=== PATIENT | female | born 2000 | race Two or more races ===

== ENCOUNTER 2025-09-18 15:24 | Emergency (ER) | payer MEDICAID, SELFPAY ==
--- NOTE | 2025-09-18 15:29 | EKG_ITS ---
[facility] Test Date: 2025-09-18 Pat Name: DOMINIQUE WOODS Department: Room: - Gender: Female Human Service Specialist: : 2000 Requested By: Faisal Vieira Order Number: [id number] Reading MD: Faisal Vieira Measurements Intervals [place] Rate: 75 P: 62 SD: 143 QRS: 55 QRSD: 82 T: 50 QT: 349 QTc: 390 Interpretive Statements SINUS RHYTHM WITH OCCASIONAL SUPRAVENTRICULAR PREMATURE COMPLEXES No previous ECG available for comparison /[id number]
--- NOTE | 2025-09-18 15:29 | XR_ITS ---
EXAMINATION: PA chest single view TECHNIQUE: Upright PA chest single view Date and time: September 18, 2025, 1549 hours INDICATIONS: Chest pain onset today. FINDINGS: Normal heart size Lungs are clear. Intact osseous structures IMPRESSION: No active disease
[2025-09-18 15:30] VITALS: BP 131/85; PULSE 79; RESP 18; TEMP 36.8; O2SAT 98; BMI 29.0
[2025-09-18 15:58] LABS: Basophils # (Auto) 0.0 Thou/mm3 (0.0-0.2); Basophils % (Auto) 1 % (0-2.5); Eosinophils # (Auto) 0.1 Thou/mm3 (0.0-0.5); Eosinophils % (Auto) 1 % (0-10); Hematocrit 38.2 % (36.0-46.0); Hemoglobin 13.2 g/dL (12.0-16.0); Immature Granulocytes Auto 0.03 Thou/mm3 (0.00-0.00); Lymphocytes # (Auto) 1.7 Thou/mm3 (1.0-4.8); Lymphocytes % (Auto) 20 % (10-50); Mean Corpuscular HGB Conc 34.6 g/dl (31.0-37.0); Mean Corpuscular Hemoglobin 30.3 pg (25.0-35.0); Mean Corpuscular Volume 88 fL (80-100); Monocytes # (Auto) 0.8 Thou/mm3 (0.0-0.8); Monocytes % (Auto) 10 % (0-12); Neutrophils # (Auto) 5.7 Thou/mm3 (1.8-7.7); Neutrophils % (Auto) 68 % (37-80); Nucleated Red Blood Cell # 0.00 Thou/mm3 (0.00-0.00); Nucleated Red Blood Cell % 0 /100 WBC (0); Platelet Count 257 Thou/mm3 (140-440); RDW Standard Deviation 40.8 fL (36.4-46.3); Red Blood Count 4.35 Miln/mm3 (4.00-5.20); White Blood Count 8.3 Thou/mm3 (3.6-11.0)
[2025-09-18 16:23] LABS: HCG,Qualitative Serum Negative
--- NOTE | 2025-09-18 16:33 | EDNOTE_ITS ---
<Statement entered by Marilynn Betancourt MD - 09/19/25 17:47> As co-signing physician, I was present and available for consult prn. I concur with the plan and care as documented by the midlevel provider. ED Chest Pain RME/HPI General Chief Complaint: Chest Pain Stated Complaint: CHEST PAIN Time Seen by Provider: 09/18/25 15:28 Source: patient Arrival date/time: 09/18/25 15:24 25-year-old female with no known medical history presents to the emergency room with a chief complaint of 7 out of 10 sternal chest pain x 2 days Mode of arrival: ambulatory Limitations: no limitations Related Data Previous Rx's ?Medication ?Instructions ?Recorded ondansetron 4 mg disintegrating 4 mg PO Q6H PRN nausea and 11/05/19 tablet vomiting #10 tabs promethazine-DM 6.25 mg-15 mg/5 mL 5 ml PO Q6H #120 mL 11/05/19 oral syrup acetaminophen 650 mg 650 mg PO Q8H PRN fever or p ain 11/06/20 tablet,extended release #30 tabs cephalexin 500 mg capsule (Keflex) 500 mg PO Q6HR #40 caps 11/06/20 ibuprofen 600 mg tablet 600 mg PO Q8H PRN fever or p ain 11/06/20 #30 tabs neomycin-bacitracn Zn-polymyx 3.5 1 applicatio topical BID #15 grams 11/06/20 mg-400 unit-5,000 unit/gram top oint (Triple Antibiotic) omeprazole 40 mg capsule,delayed 40 mg PO QDAY #14 cap s 09/18/25 release Allergies Allergy/AdvReac Type Severity Reaction Status Date / Time No Known Allergies Allergy Verified 11/05/19 09:46 Review of Systems Review of Systems Systems Reviewed: All systems reviewed, normal except as documented Constitutional Constitutional: Reports system reviewed and no additional complaints, except as documented, Denies fatigue, Denies fever(s), Denies headache(s) and Denies weakness Eyes Eyes: Reports system reviewed and no additional complaints, except as documented, Denies blurry vision and Denies change in vision ENT Ears, Nose, Mouth, and Throat: Reports system reviewed and no additional complaints, except as documented, Denies otalgia, Denies headache(s), Denies nasal congestion, Denies throat swelling and Denies vertigo Cardiovascular Cardiovascular: Reports system reviewed and no additional complaints, except as documented, Reports chest pain, Reports chest pain with activity, Denies dyspnea and Denies dyspnea on exertion Respiratory Respiratory: Reports system reviewed and no additional complaints, except as documented, Denies chest congestion, Denies cough, Denies dyspnea, Denies dyspnea on exertion and Denies wheezing Gastrointestinal Gastrointestinal: Reports system reviewed and no additional complaints, except as documented, Denies abdominal pain, Denies cramping, Denies nausea and Denies vomiting Genitourinary Genitourinary: Reports system reviewed and no additional complaints, except as documented Musculoskeletal Musculoskeletal: Reports system reviewed and no additional complaints, except as documented and Denies back pain Integumentary/Breasts Skin/Breast: Reports system reviewed and no additional complaints, except as doc umented and Denies wounds Neurologic Neurologic: Reports system reviewed and no additional complaints, except as documented, Denies confusion, Denies headache(s), Denies lack of coordination, Denies vertigo and Denies weakness Psychiatric Psychiatric: Reports system reviewed and no additional complaints, except as documented, Denies anxiety, Denies confusion, Denies depression, Denies paranoia, Denies suicidal ideation and Denies tactile hallucinations Endocrine Endocrine: Reports system reviewed and no additional complaints, except as documented and Denies fatigue Hematologic/Lymphatic Hematologic/Lymphatic: Reports system reviewed and no additional complaints, except as documented and Denies lymphadenopathy Allergic/Immunologic Allergic/Immunologic: Reports system reviewed and no additional complaints, except as documented, Denies throat swelling, Denies urticaria and Denies wheezing ED Exam General Limitations: Present no limitations Course Quality Measures none Orders Category Date Time Status EKG (ED ONLY) *Do not use* NOW Care 09/18/25 15:29 Completed CXR [XR chest 1V] Stat Exams 09/18/25 15:29 Completed EKG (ED Only) Stat Exams 09/18/25 15:29 Draft CBC Stat Lab 09/18/25 15:42 Completed CMP [Comprehensive Metabolic Panel] Stat Lab 09/18/25 15:42 Completed HCG,Qualitative Serum Stat Lab 09/18/25 15:42 Completed Troponin I Stat Lab 09/18/25 15:42 Completed Vital Signs Vital signs: Vital Signs Temperature 98.3 F 09/18/25 15:30 Pulse Rate 79 09/18/25 15:30 Respiratory Rate 18 09/18/25 15:30 Blood Pressure 131/85 H 09/18/25 15:30 Pulse Oximetry (%) 98 09/18/25 15:30 Oxygen Delivery Method Room Air 09/18/25 15:30 PROCEDURES: EKG Interpretation #1: Date of EK09/18/25 Rate: 75 Interpretation: Reviewed by me EKG Impression: Normal sinus rhythm Chest Pain MDM Narrative MDM Narrative:: 25-year-old female with no known medical history presents to the emergency room with a chief complaint of 7 out of 10 sternal chest pain x 2 days Patient is hemodynamically stable and in no apparent distress. Physical examination shows 7 out of 10 sternal chest pain but the patient also has tenderness to the epigastric area of the patient's abdomen and she states that is where the pain begins. EKG was completed and shows normal sinus rhythm at [address] deviation. CBC CMP troponin BNP were all within normal limits. Chest x-ray was negative for any pneumonic infiltrates. Patient was discharged and educated to follow-up with primary care provider in the next 24 to 48 hours and return to the emergency room for any evidence of worsening signs or symptoms Patient data External records reviewed:: [facility] previous records Clinical information provided by:: patient Social determinants that could affect healthcare access:: none Patient has the following chronic illnesses:: No chronic illness How is presenting disease/condition affected by chronic disease/condition?: no chronic disease Evaluation data The following diagnostics were reviewed and interpreted by me:: lab results and radiology exam(s) Lab and/or radiology exams considered but not ordered:: Labs and radiology exams considered and ordered Interpretation Summary: Chest [id number]: Normal heart size Lungs are clear. Intact osseous structures IMPRESSION: No active disease Medications / Prescriptions Medications or Prescriptions considered but not ordered:: No medication given Medication administrations:: No medication given Consultations Consultation(s) initiated? (list below): No Diagnosis Chest Pain Differential Diagnosis: stable angina, atypical chest pain, st elevation myocardial infarction, costochondritis, chest pain and other (Gastritis) Most likely diagnosis given after review of the tests above:: Gastritis Admission Indicated Admission indicated?: not indicated Admission Request Was there a request for admission?: No Disposition Plan Disposition Plan: Discharge Discharge Attestation Discharge Attestation: The patient and all family members were given an opportunity to ask questions and understood the discharge instructions. Discharge instructions specifically effects, indications for sooner follow up or return to the emergency department, and the expected course of current diagnosis. Patient condition: Stable Discharge Plan Plan Patient Disposition: HOME (Self Care) Discharge Disposition comment: Stable Prescriptions/Referrals Prescriptions/Med Rec: New omeprazole 40 mg capsule,delayed release(DR/EC) 40 mg PO QDAY Qty: 14 0RF No Action promethazine-DM 6.25-15 mg/5 mL syrup 5 ml PO Q6H Qty: 120 0RF ondansetron 4 mg tablet,disintegrating 4 mg PO Q6H PRN (Reason: nausea and vomiting) Qty: 10 0RF acetaminophen 650 mg tablet extended release 650 mg PO Q8H PRN (Reason: fever or pain) Qty: 30 0RF Rx Instructions: swallow whole; do not chew/break/dissolve/open ibuprofen 600 mg tablet 600 mg PO Q8H PRN (Reason: fever or pain) Qty: 30 0RF Triple Antibiotic 3.5mg-400 unit- 5,000 unit/gram ointment 1 applicatio TOPICAL BID Qty: 15 0RF cephalexin [Keflex] 500 mg capsule 500 mg PO Q6HR Qty: 40 0RF Referrals: Shashank Ashley MD [Primary Care Provider, Family Practice] - In 1 week Problem List Clinical Impression: Gastritis Patient/Caregiver Discharge Instructions Education Materials: ED Gastritis (Adult) Additional Instructions: Please follow-up with your primary care provider in the next 24 to 48 hours Cardiac examination was within normal limits Medication was sent to your pharmacy please pick it up and take it as indicated For any evidence of worsening signs or symptoms return to the emergency room immediately Print Language: Hungarian Stand Alone Forms: Mi Award Info., Work/School Release, Patient Portal Info Letter PA/COMPUTER SYSTEMS SOFTWARE ENGINEER Supervising Physician PA/COMPUTER SYSTEMS SOFTWARE ENGINEER Supervising Physician:
[2025-09-18 16:36] LABS: Alanine Aminotransferase 10 U/L (10-49); Albumin, Serum 5.0 gm/dL (3.5-5.0); Albumin/Globulin Ratio 1.7 (1.2-2.2); Alkaline Phosphatase 80 U/L (46-116); Anion Gap 8 (7-16); Aspartate Amino Transferase 18 U/L (0-34); BUN/Creatinine Ratio 8 Ratio (12-20); Bilirubin,Total 0.4 mg/dL (0.3-1.2); Blood Urea Nitrogen 6 mg/dL (9-23); Calcium 9.4 mg/dL (8.3-10.6); Calcium (Corrected) 9.4 mg/dL (8.5-10.1); Carbon Dioxide 27.9 mMol/L (20.0-31.0); Chloride 103 mMol/L (98-107); Creatinine (Component) 0.8 mg/dL (0.6-1.3); Estimated Creatinine Clearance 113.8 mL/min (>60); Globulin 3.0 gm/dL (2.3-3.5); Glucose 98 mg/dL (74-106); Osmolality,Calculated 275 (275-295); Potassium 3.6 mMol/L (3.4-5.1); Sodium 139 mMol/L (136-145); Total Protein 8.0 gm/dL (5.7-8.2); Troponin I < 0.002 ng/mL (0.0-0.045); eGFR > 60 See Note
== END 2025-09-18 17:51 | disposition home or self-care (01) ==
PROVIDERS: Physician Assistant; Emergency Provider Emergency Medicine; PCP Family Medicine
DX: K29.70 Gastritis, unspecified, without bleeding (principal); I49.1 Atrial premature depolarization; R07.2 Precordial pain
CPT/HCPCS: 36415; 71045; 80053; 84484; 84703; 85025; 93005; 99283